=== PATIENT | female | born 1995 | race Caucasian/White ===

== ENCOUNTER 2017-01-20 05:09 | Emergency (ER) | payer OTHER ==
[~2017-01-20 05:09] MED LIST: AMOXICILLIN500 M1 PO; BACTRIM DS TABL1 TA1 PO; CIPRO PO; IBUPROFEN800 MG PO; IMPLANON68 MG/IMPL; MONODOX100 MG PO; MOTRIN600 MG PO; NO MEDICATIONS; PAROXETINE HCL20 M1; PYRIDIUM PO; VICODIN 5/1 TAB 5/50 PO; VOLTAREN50 MG PO
[2017-01-20 05:29] LABS: URINE SOURCE CLEAN CATCH
[2017-01-20 05:35] LABS: URINE APPEARANCE CLOUDY; URINE BILIRUBIN NEG (NEG); URINE BLOOD NEG (NEG); URINE COLOR YELLOW; URINE GLUCOSE NEG (NEG); URINE KETONE NEG (NEG); URINE LEUKOCYTE ESTERASE TRACE (NEG); URINE NITRATE NEG (NEG); URINE PH 5.5 (5-8); URINE PROTEIN NEG (NEG); URINE SPECIFIC GRAVITY 1.029 (1.003-1.035)
[2017-01-20 05:38] LABS: CULTURE INDICATED? YES; URINE SQUAMOUS EPITHELIAL CELL MOD /[HPF]
[2017-01-20 05:48] LABS: URINE MUCUS PRESENT
[2017-01-20 05:49] LABS: URINE BACTERIA AUWI 1+ (NEGATIVE)
== END 2017-01-20 07:00 | disposition left against medical advice (07) ==
LOC: CED 05:09
DX: Z53.21 Procedure and treatment not carried out due to patient leaving prior to being seen by health care provider (principal)
CPT/HCPCS: 81003; 84703; 87086